=== PATIENT | female | born 1970 | race Caucasian/White ===

== ENCOUNTER 2020-08-21 12:08 | Outpatient (RCR) | payer BC | END 2020-08-23 | disposition home or self-care (01) | LOC: WCC 12:08 | DX: S61.311A Laceration without foreign body of left index finger with damage to nail, initial encounter (principal); X58.XXXA Exposure to other specified factors, initial encounter; Z88.8 Allergy status to other drugs, medicaments and biological substances | CPT/HCPCS: 99204 ==